=== PATIENT | male | born 1950 | race Caucasian/White ===

== ENCOUNTER → 2020-12-08 | Outpatient (CLI) | payer MEDICARE ==
[2020-12-08 13:05] LABS: BUN/CREATININE RATIO 21 (0-10)
[2020-12-09 19:08] LABS: CHOLESTEROL, TOTAL 141 mg/dL (100-199); HDL SIZE 8.7 nm (>=9.2); HDL-C 35 mg/dL (>39); HDL-P (TOTAL) 27.3 umol/L (>=30.5); LARGE HDL-P 2.7 umol/L (>=4.8); LARGE VLDL-P 12.5 nmol/L (<=2.7); LDL SIZE 19.8 nm (>20.5); LDL SIZE 19.8 nm (>=20.8); LDL-C 65 mg/dL (0-99); LDL-P 871 nmol/L (<1000); LP-IR SCORE 81 (<=45); SMALL LDL-P 658 nmol/L (<=527); TRIGLYCERIDES 253 mg/dL (0-149); VLDL SIZE 54.7 nm (<=46.6)
== END ==
LOC: LAB 11:48
PROVIDERS: Emergency Medicine
DX: E11.42 Type 2 diabetes mellitus with diabetic polyneuropathy (principal); E11.65 Type 2 diabetes mellitus with hyperglycemia; E11.69 Type 2 diabetes mellitus with other specified complication; E29.1 Testicular hypofunction; E78.2 Mixed hyperlipidemia; I10 Essential (primary) hypertension
CPT/HCPCS: 36415; 80053; 80061; 83036; 83704

== ENCOUNTER → 2021-10-25 | Outpatient (CLI) | payer MEDICARE ==
[2021-10-25 11:44] LABS: HEMOGLOBIN 16.8 gm/dl (14.0-17.5); RED BLOOD COUNT 5.43 M/UL (4.20-5.50); WHITE BLOOD COUNT 5.3 K/UL (4.5-11.0)
[2021-10-25 12:21] LABS: BUN/CREATININE RATIO 27 (0-10)
[2021-10-26 10:16] LABS: CREATININE, URINE 50.5 mg/dL (Not Estab.)
== END ==
LOC: LAB 11:00
PROVIDERS: Emergency Medicine
DX: Z12.5 Encounter for screening for malignant neoplasm of prostate (principal); I10 Essential (primary) hypertension; E78.2 Mixed hyperlipidemia; E11.65 Type 2 diabetes mellitus with hyperglycemia; R53.83 Other fatigue; Z79.899 Other long term (current) drug therapy
CPT/HCPCS: 36415; 80053; 82043; 82570; 83036; 84443; 84550; 85025; G0103

== ENCOUNTER 2022-03-12 12:46 | Emergency (ER) | payer MEDICARE ==
[2022-03-12 14:18] LABS: HEMOGLOBIN 16.8 gm/dl (14.0-17.5); RED BLOOD COUNT 5.31 M/UL (4.20-5.50); WHITE BLOOD COUNT 12.1 K/UL (4.5-11.0)
[2022-03-12 14:49] LABS: BUN/CREATININE RATIO 27 (0-10)
== END 2022-03-12 15:45 | disposition home or self-care (01) ==
LOC: ER1 12:46
PROVIDERS: Physician Assistant
DX: I61.9 Nontraumatic intracerebral hemorrhage, unspecified (principal); R29.700 NIHSS score 0; M54.2 Cervicalgia; I10 Essential (primary) hypertension; E11.9 Type 2 diabetes mellitus without complications; I48.91 Unspecified atrial fibrillation; Z79.01 Long term (current) use of anticoagulants; Z51.81 Encounter for therapeutic drug level monitoring; Z20.822 Contact with and (suspected) exposure to COVID-19
CPT/HCPCS: 70450; 71045; 80053; 82550; 82553; 84484; 85025; 85610; 85730; 93005; 96374; 96375; 99285; J7168; U0002